=== PATIENT | female | born 1970 | race Caucasian/White ===

== ENCOUNTER 2017-02-14 08:15 | Outpatient (CLI) | payer OTHER ==
--- NOTE | 2017-02-14 11:16 | DIAGNOSTIC IMAGING REPORT ---
PROCEDURE: MR UPPER EXTREMITY W/O CONT-LT INDICATION: Increasing left shoulder pain. No history of shoulder surgery. TECHNIQUE: PD and FAT-SAT PD, axial, and coronal-oblique images. PD and STIR sagittal-oblique images. COMPARISON: None. FINDINGS: There are moderate to marked degenerative changes of the left glenohumeral joint with subchondral cyst formation. In addition, findings suggest tears of the superior and ventral glenoid labrum with degeneration of the posterior labrum. These findings are associated with mild chronic posterior subluxation of the suggest instability) and a small to moderate left glenohumeral joint effusion. There are minor degenerative changes of a type 2 acromial acromion with mild degenerative changes of the left acromioclavicular joint, resulting in mild impingement. There is no evidence of coracoid impingement (15 mm). There is moderate tendinosis of the anterior lateral and ventral rotator cuff (supraspinatus, subscapularis), but no of the rotator cuff tear. Biceps tendon appears intact. IMPRESSION: 1. Moderate to marked degenerative changes of the left glenohumeral joint with ventral and superior labral tears, and degeneration of the posterior labrum. Findings are associated with posterior subluxation (suggests chronic instability ). 2. Associated small to moderate left glenohumeral joint effusion. 3. Mild degenerative change of the left acromioclavicular joint. 4. Moderate tendinosis of the anterior lateral and ventral rotator cuff, but no of the rotator cuff tear.
== END 2017-02-14 23:00 ==
LOC: MRI SRH 08:15
DX: M19.012 Primary osteoarthritis, left shoulder (principal); M25.412 Effusion, left shoulder; S43.492A Other sprain of left shoulder joint, initial encounter